=== PATIENT | male | born 1975 | race Caucasian/White ===

== ENCOUNTER 2021-05-13 13:15 | Emergency (ER) | payer MEDICAID ==
[~2021-05-13] VITALS: Ht 167.6 cm; Wt 69.0 kg
[2021-05-13] MEDS ORDERED: BACITRACIN ZINC OINT UDPKT TOP ONE (14:00)
[2021-05-13] MEDS ORDERED: TETANUS, DIPHTHERIA, PERTUSSIS VAC/PF 0.5ML (>10YR OLD) IM ONE (14:00)
[2021-05-13] MEDS ORDERED: HYDROCODONE/ACETAMINOPHEN 5/325MG TABLET PO ONE (15:15)
[2021-05-13] MEDS ORDERED: TOPUD MT (16:22)
[2021-05-13 17:30] VITALS: BP 131/76
[2021-05-14] MEDS ORDERED: SULF1TAB48 MT (18:04)
[2021-05-14] MEDS ORDERED: CEPH500T MT (18:04)
== END 2021-05-13 17:35 | disposition home or self-care (01) ==
LOC: ER 13:28
DX: S09.90XA Unspecified injury of head, initial encounter (principal); J45.909 Unspecified asthma, uncomplicated; Y04.0XXA Assault by unarmed brawl or fight, initial encounter; Y93.89 Activity, other specified; Y92.89 Other specified places as the place of occurrence of the external cause; Y99.8 Other external cause status
CPT/HCPCS: 70486; 90471; 90715; 99284

== ENCOUNTER 2021-05-14 15:48 | Emergency (ER) | payer MEDICAID, OTHER ==
[~2021-05-14] VITALS: Ht 165.1 cm; Wt 73.0 kg
[~2021-05-14 15:48] MED LIST: TOPUD MT
[2021-05-14] MEDS ORDERED: HYDROCODONE/ACETAMINOPHEN 5/325MG TABLET PO ONE (16:00)
[2021-05-14] MEDS ORDERED: BACITRACIN ZINC OINT UDPKT TOP ONE (16:00)
[2021-05-14] MEDS ORDERED: TETANUS, DIPHTHERIA, PERTUSSIS VAC/PF 0.5ML (>10YR OLD) IM ONE (16:00)
[2021-05-14 17:11] VITALS: BP 142/77
[2021-05-14] MEDS ORDERED: SULF1TAB48 MT (18:04)
[2021-05-14] MEDS ORDERED: CEPH500T MT (18:04)
== END 2021-05-14 18:41 | disposition home or self-care (01) ==
LOC: ER 15:48
DX: S01.80XA Unspecified open wound of other part of head, initial encounter (principal); L08.9 Local infection of the skin and subcutaneous tissue, unspecified; X58.XXXA Exposure to other specified factors, initial encounter; Y93.89 Activity, other specified; Y92.89 Other specified places as the place of occurrence of the external cause
CPT/HCPCS: 90471; 90715; 99283

== ENCOUNTER 2023-10-15 08:59 | Emergency (ER) | payer OTHER ==
[~2023-10-15] VITALS: Ht 165.1 cm; Wt 74.0 kg
[~2023-10-15 08:59] MED LIST changes: +CEPH500T MT; +SULF1TAB48 MT
[2023-10-15 09:01] VITALS: BP 144/98; PULSE 67; RESP 16; TEMP 98.2; O2SAT 98
== END 2023-10-15 09:21 ==
LOC: ER 08:59
DX: Z00.00 Encounter for general adult medical examination without abnormal findings (principal); J45.909 Unspecified asthma, uncomplicated; Z98.890 Other specified postprocedural states; Z88.6 Allergy status to analgesic agent
CPT/HCPCS: 99283